=== PATIENT | female | born 1945 | race Caucasian/White ===

== ENCOUNTER 2017-03-31 23:01 | Emergency (ER) | payer OTHER, MEDICARE ==
[2017-03-31 23:09] VITALS: RESP 16
[2017-03-31] MEDS ORDERED: IBUPROFEN 600 MG TAB PO ONE ×3 (23:24→23:50)
--- NOTE | 2017-03-31 23:24 | EDPHY ---
H & P Stated Complaint: l wrist, hand pain vs [facility] fall while walking dog HPI/ROS: CHIEF COMPLAINT: Fall, hand, wrist and knee pain HISTORY OF PRESENT ILLNESS: Patient was walking her dog just prior to arrival and playing [id number] when she tripped and fell. She struck her right knee and her left forearm broke her fall. She noted a sudden onset of pain in the left distal forearm and hand. Mild pain in the right knee. The forearm is moderate to severe. Worse with palpation or movement. She is able to drive herself here but became even more painful when doing so. No numbness or tingling. The right pain is minimally painful. Able to walk without difficulty. She feels she exacerbated previous injury to the knee. No head strike or loss of consciousness. No neck pain. No chest or back pain. No abdominal pain. No pain in the right arm of the left leg. PRIOR ORTHO INJURIES: Right ACL injury remotely ESTABLISHED ORTHOPEDIST: None REVIEW OF SYSTEMS: Ten systems reviewed and are negative unless otherwise noted in the HPI EXAMINATION General Appearance: Alert, no distress Cardiovascular: Pulses normal throughout. Symmetric radial pulses 2+. Symmetric DP pulses and PT pulses 2+. Brisk cap refill Neurological: A&O, sensory symmetric, strength symmetric. No wrist drop. Good strength of the interossei. Two point sensation intact Skin: Warm and dry, no rash. Mild ecchymosis over the left distal forearm and wrist. Superficial abrasions to the left 5th metacarpal and right knee. No laceration. Extremities: There is moderate tenderness of the left wrist and hand over the 5th metacarpal. There is mild deformity of the wrist. There is mild tenderness of the right anterior knee. Range of motion of the right lower extremity is symmetric to the left without hesitation or pain. Range of motion of the right upper extremity is fully intact without pain. Range of motion of the left shoulder and elbow was intact without pain. Range of motion of the left wrist difficult to test due to pain. There is good flexion extension of the left fingers. No wrist drop. Neurovascular intact distal to the area of pain Psychiatric: Mood and affect normal DIFFERENTIAL DIAGNOSES: Including but not limited to fracture, sprain, dislocation, fracture dislocation , contusion, hematoma caused abrasions MDM: 11:20 p.m. Mechanical fall with right knee pain, left hand pain, left distal forearm pain. Neurovascular intact. No head or neck injury. Vital signs are stable. X-rays or ordered of all areas of pain. 11:35 p.m. X-ray reveals a comminuted, angulated distal radius fracture. There is also an ulnar styloid fracture. 11:55 p.m. I have administered a hematoma block to the left wrist. She is starting to feel better. Will place her in the finger traps and attempt closed reduction under hematoma block. She remains neurovascular intact. 12:07 a.m. Patient has been placed into the finger traps with passive traction by saline bags. There is already improvement in the appearance of the wrist, but this seems to sublux is soon as I leg over the wrist. I will attempt closed reduction. She is tolerating this well with good anesthesia after the hematoma block. 12:35 a.m. X-ray as read by me shows minimal improvement of the distal radius fracture. She remains neuro intact and sugar-tong splint. I will consult Orthopedics 1:05 a.m. I discussed the case with Dr. Babin. He has reviewed the pre and post attempted reduction films. He has instructed us to leave the patient in the current splinted that there is no indication to attempt to 2nd reduction as the fractures too unstable. We discussed that she is neurovascular intact at this time with no evidence of acute carpal tunnel. He would like to see the patient is office tomorrow. He plans for surgical intervention on Wednesday. No further recommendations are request. We have adhere to these recommendations and she will be discharged home stable condition with splint in place. Neurovascular intact at this time. Procedure: Hematoma block Indication: Left distal radius fracture with displacement, comminuted Consent: Verbal Description: The posterior wrist was prepped with chlorhexidine. Area fracture line was identified visually. 27 gauge needle was inserted to the hematoma. There was venous return. 8 mL as of 1% lidocaine plain were infused. Tolerated well. No complication. PROCEDURE: Closed reduction of left distal radius Consent: Verbal Location: Left distal radius Anesthesia: Hematoma block Procedure: After good anesthesia from hematoma block there is a left upper extremity was placed in finger traps. There was passive traction place with saline bags. I then manipulated the distal radius component with traction and manual manipulation. There was improvement in appearance of the wrist, but this immediately subluxes upon releasing the wrist. Minimal improvement of closed reduction. She remains neurovascular intact. She is placed in a sugar- tong splint. Complications: None Post-reduction film: Shows minimal improvement ED Precautions: Worsening pain. Erythema, edema, cyanosis, pallor, paresthesia or anesthesia. SUPERVISION: This patient was independently evaluated without direct examination by the attending physician. Case was discussed with attending physician. Source: Patient Exam Limitations: No limitations - Personal History Current Tetanus/Diphtheria Vaccine: Yes - Medical/Surgical History Hx Asthma: No Hx Chronic Respiratory Disease: No Hx Diabetes: No Hx Cardiac Disease: No Hx Renal Disease: No Hx Cirrhosis: No Hx Alcoholism: No Hx HIV/AIDS: No Hx Splenectomy or Spleen Trauma: No Other PMH: Denies - Social History Smoking Status: Never smoked Constitutional: Initial Vital Signs Temperature (C) 98.6 F 03/31/17 23:05 Heart Rate 78 03/31/17 23:05 Respiratory Rate 16 03/31/17 23:05 Blood Pressure 150/98 H 03/31/17 23:05 O2 Sat (%) 97 03/31/17 23:05 O2 Delivery Mode Room Air Allergies/Adverse Reactions: Quinolones Adverse Reaction (Verified 03/31/17 23:09) Home Medications: Medication Instructions Recorded Hydrocodone/APAP 5/325 [[place] 1 - 2 tab PO Q4H PRN #19 tab 04/01/17 5/325 (*)] Medical Decision Making - Diagnostics Imaging Results: Imaging Impressions Forearm X-Ray 03/31/17 23:18 Impression: Shortened and palmarly displaced large radial fragment associated with the adjacent carpus. 2. Left Forearm, 3 views History: Pain post trauma, fall. Findings: The proximal radius and ulna are intact. The comminuted distal radial articular surface fracture and ulnar styloid process fracture are again noted and described above. Impression: No additional fracture or malalignment identified. 3. Left Knee , 5 views, including a sunrise view History: Pain post trauma. Fall. Findings: No fracture, effusion or malalignment is identified. There is hypertrophic change of the medial margin of the tibial plateau. Mineralization is normal. Impression: Nothing acute identified. Hand X-Ray 03/31/17 23:18 Impression: Shortened and palmarly displaced large radial fragment associated with the adjacent carpus. 2. Left Forearm, 3 views History: Pain post trauma, fall. Findings: The proximal radius and ulna are intact. The comminuted distal radial articular surface fracture and ulnar styloid process fracture are again noted and described above. Impression: No additional fracture or malalignment identified. 3. Left Knee , 5 views, including a sunrise view History: Pain post trauma. Fall. Findings: No fracture, effusion or malalignment is identified. There is hypertrophic change of the medial margin of the tibial plateau. Mineralization is normal. Impression: Nothing acute identified. Knee X-Ray 03/31/17 23:18 Impression: Shortened and palmarly displaced large radial fragment associated with the adjacent carpus. 2. Left Forearm, 3 views History: Pain post trauma, fall. Findings: The proximal radius and ulna are intact. The comminuted distal radial articular surface fracture and ulnar styloid process fracture are again noted and described above. Impression: No additional fracture or malalignment identified. 3. Left Knee , 5 views, including a sunrise view History: Pain post trauma. Fall. Findings: No fracture, effusion or malalignment is identified. There is hypertrophic change of the medial margin of the tibial plateau. Mineralization is normal. Impression: Nothing acute identified. - Data Points Medications Given: Discontinued Medications Ibuprofen (Motrin) 600 mg PO EDNOW ONE Stop: 03/31/17 23:50 Last Admin: 04/01/17 00:33 Dose: 600 mg Departure - Departure Disposition: Home, Routine, Self-Care Clinical Impression: Fracture of radius, distal, left, closed Qualifiers: Encounter type: initial encounter Fracture morphology: Colles' Qualified Code(s ): S52.532A - Colles' fracture of left radius, initial encounter for closed fracture Sprain of hand, left Qualifiers: Encounter type: initial encounter Qualified Code(s): S63.92XA - Sprain of unspecified part of left wrist and hand, initial encounter Right knee sprain Qualifiers: Encounter type: initial encounter Involved ligament of knee: unspecified ligament Qualified Code(s): S83.91XA - Sprain of unspecified site of right knee , initial encounter Condition: Good Instructions: Hydrocodone/Acetaminophen (By mouth), Knee Sprain (ED), Wrist Fracture in Adults (ED) Additional Instructions: 1. Nonweightbearing left upper extremity 2. Keep your splint in place at all times 3. Follow up with Orthopedics for definitive care 4. Return to the ER for any numbness, weakness, changes in color or temperature of the hand or wrist Referrals: Tori Coughlin MD [Primary Care Provider] - As per Instructions Heraclio Babin MD [Medical Doctor] - As per Instructions Anthony German MD [Medical Doctor] - As per Instructions Prescriptions: Hydrocodone/APAP 5/325 [[place] 5/325 (*)] 1 - 2 tab PO Q4H PRN #19 tab PRN Reason: Pain, Moderate
[2017-04-01] MEDS ORDERED: IBUPROFEN 600 MG TAB PO ONE (00:32)
[2017-04-01] MEDS ORDERED: HYDROCOD/APAP 5/325 PREPACK#6 BTL TAKEHOME ONE ×2 (00:42→01:20)
[2017-04-01 01:30] VITALS: BP 124/82; PULSE 76; TEMP 98.1; O2SAT 92
== END 2017-04-01 01:29 | disposition home or self-care (01) ==
PROC: 0PSJXZZ Reposition Left Radius, External Approach (ICD-10-PCS; principal; 2017-03-31)
DX: S52.532A Colles' fracture of left radius, initial encounter for closed fracture (principal); S63.92XA Sprain of unspecified part of left wrist and hand, initial encounter; S83.91XA Sprain of unspecified site of right knee, initial encounter; W01.198A Fall on same level from slipping, tripping and stumbling with subsequent striking against other object, initial encounter; Y99.8 Other external cause status; Y93.01 Activity, walking, marching and hiking
CPT/HCPCS: 25605; 73090; 73100; 73130; 73564; 99284; L3980